=== PATIENT | male | born 1990 | race African-American/Black ===

== ENCOUNTER 2017-10-26 07:24 | Emergency (ER) | payer OTHER ==
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
[2017-10-26] MEDS ORDERED: Ibuprofen 600 MG Tab ONE (09:14)
[2017-10-26] MEDS ORDERED: Ibuprofen 600 MG Tab PO ONE (09:15)
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
== END 2017-10-26 09:16 | disposition left against medical advice (07) ==
LOC: MW.ED 07:24
DX: M54.5 Low back pain (principal); F17.210 Nicotine dependence, cigarettes, uncomplicated; V49.40XA Driver injured in collision with unspecified motor vehicles in traffic accident, initial encounter; Y92.410 Unspecified street and highway as the place of occurrence of the external cause
CPT/HCPCS: 72100; 99283; A9270